=== PATIENT | male | born 1975 | race Hispanic/Latino ===

== ENCOUNTER 2023-04-06 11:50 | Emergency (ER) | payer OTHER ==
[~2023-04-06] VITALS: Ht 172.7 cm; Wt 77.1 kg
[2023-04-06 12:10] VITALS: BP 148/82; PULSE 128; RESP 18
[2023-04-06] MEDS ORDERED: KETOROLAC 30MG VIAL (30MG/ML) IM ONE (15:30)
[2023-04-06] MEDS ORDERED: HYDROCODONE/ACETAMINOPHEN 10/325 MG TAB PO ONE (15:30)
[2023-04-06] MEDS ORDERED: TRAM50TA4 PO (17:30)
[2023-04-06] MEDS ORDERED: HYDR-4060 PO (17:42)
== END 2023-04-06 17:55 | disposition home or self-care (01) ==
LOC: EDH 11:50
DX: S82.841A Displaced bimalleolar fracture of right lower leg, initial encounter for closed fracture (principal); X58.XXXA Exposure to other specified factors, initial encounter; Y93.89 Activity, other specified; Y92.89 Other specified places as the place of occurrence of the external cause; Y99.8 Other external cause status
CPT/HCPCS: 99283; 29515; 73610; 96372; J1885